=== PATIENT | female | born 1940 | race Caucasian/White ===

== ENCOUNTER → 2020-06-14 | Outpatient (CLI) | payer MEDICARE, MEDICAID ==
[~2020-06-14] MED LIST: ARICEPT 5MG PO; ASPIRIN E.C. 8181 MG PO; B-121000 MCG PO; COREG 3.123.125 MG/T PO; COREG12.5 MG PO; DEPAKOTE ER 25250 MG PO; DESYREL 50MG50 MG PO; DESYREL DIVIDO150 M1 PO; FERROUS SU325 MG/TAB PO; IBU600 MG PO; K-TAB20 PO; LASIX 20MG TABL20 MG PO; LASIX 40MG TABL40 MG PO; LIPITOR 40MG TA40 MG PO; NAMENDA 10MG TA10 MG PO; NORVASC 5MG5 MG/TAB PO; PLAVIX 75MG TAB75 MG PO; PROTONIX 40MG T40 MG PO; REFRESH TEARS 330 ML OP; SYNTHROID0.05 MG/TA PO; TYLENOL 325MG325 MG PO; ZYRTEC 10MG10 MG PO
[2020-06-14 13:30] LABS: EOS # 0.6 (0.0-0.7); EOS % 14.2 % (0-4.0); GRAN # 1.8 (1.4-6.5); GRAN % 42.3 % (42.2-75.2); LYMPH # 1.2 (1.2-3.4); LYMPH % 28.8 % (20.0-51.0); MEAN CELL VOLUME 104 fl (80.0-100.0); MEAN CORPUSCULAR HGB CONC 31 g/dl (33.0-37.0); MEAN PLATELET VOLUME 10.4 fl (7.4-10.4); MONO # 0.6 (0.1-0.6); MONO % 13.5 % (1.7-9.3); PLATELET COUNT 162 K/mm3 (130-400); RED BLOOD COUNT 3.01 M/mm3 (4.10-5.30); REDCELL DISTRIBUTION WIDTH-CV 14.6 % (11.5-14.5)
[2020-06-14 13:32] LABS: ALBUMIN 2.9 gm/dL (3.5-5.0); BILIRUBIN,TOTAL 0.4 mg/dL (0.0-1.0); CALCIUM 8.6 mg/dL (8.4-10.2); CHOLESTEROL RISK RATIO 3.8; CREATININE, serum 1.01 (0.52-1.25); POTASSIUM 4.6 mmol/L (3.4-5.0); TOTAL PROTEIN 5.9 gm/dL (6.4-8.2)
[2020-06-14 13:33] LABS: HEMATOCRIT 31.3 % (37.0-47.0); HEMOGLOBIN 9.8 g/dl (12.5-16.0); MEAN CORPUSCULAR HEMOGLOBIN 33 pg (27.0-31.0)
[2020-06-14 13:58] LABS: THYROID STIMULATING HORMONE 4.93 uIU/mL (0.465-4.680)
== END ==
LOC: ZCOL.LAB 12:51
PROVIDERS: Family Medicine
DX: I10 Essential (primary) hypertension (principal); E78.5 Hyperlipidemia, unspecified; E03.9 Hypothyroidism, unspecified

== ENCOUNTER → 2020-08-17 | Outpatient (CLI) | payer MEDICARE, MEDICAID ==
[2020-08-17 14:18] LABS: VALPROIC ACID (DEPAKENE) 32.4 ug/mL (50.0-100.0)
== END ==
LOC: ZCOL.LAB 13:32
PROVIDERS: Family Medicine
DX: I10 Essential (primary) hypertension (principal); E61.2 Magnesium deficiency; R74.01 Elevation of levels of liver transaminase levels

== ENCOUNTER → 2020-08-18 | Outpatient (CLI) | payer MEDICAID | LOC: ZCOL.LAB 11:50 | DX: E78.5 Hyperlipidemia, unspecified (principal) ==

== ENCOUNTER 2020-10-09 11:21 | Inpatient (IN) | payer MEDICARE, MEDICAID ==
[~2020-10-09] VITALS: Ht 162.6 cm; Wt 60.0 kg
[2020-10-09 12:59] LABS: COLLECTION METHOD CLEAN CATCH
[2020-10-09 13:10] LABS: MUCOUS Present /lpf; PH 5 (5-8); SQUAMOUS EPITHELIAL 0-2 /hpf; URINE APPEARANCE Clear; URINE BACTERIA Rare /hpf; URINE BILIRUBIN Negative (NEGATIVE); URINE BLOOD Negative (NEGATIVE); URINE COLOR Yellow; URINE GLUCOSE Negative (NEGATIVE); URINE KETONE Negative (NEGATIVE); URINE LEUKOCYTE ESTERASE Negative (NEGATIVE); URINE NITRATE Negative (NEGATIVE); URINE PROTEIN(semi-quant) Negative (NEGATIVE); URINE RBC 0-2 /hpf; URINE UROBILINOGEN Negative (NEGATIVE)
[2020-10-09 13:15] LABS: BASO % 0.2 % (0.0-2.0); EOS # 0.2 (0.0-0.7); EOS % 3.6 % (0-4.0); GRAN # 2.3 (1.4-6.5); GRAN % 53.9 % (42.2-75.2); HEMATOCRIT 32.2 % (37.0-47.0); HEMOGLOBIN 10.1 g/dl (12.5-16.0); LYMPH # 1.3 (1.2-3.4); LYMPH % 31.1 % (20.0-51.0); MEAN CELL VOLUME 106 fl (80.0-100.0); MEAN CORPUSCULAR HEMOGLOBIN 33 pg (27.0-31.0); MEAN CORPUSCULAR HGB CONC 31 g/dl (33.0-37.0); MEAN PLATELET VOLUME 11.3 fl (7.4-10.4); MONO # 0.5 (0.1-0.6); PLATELET COUNT 98 K/mm3 (130-400); RED BLOOD COUNT 3.05 M/mm3 (4.10-5.30); REDCELL DISTRIBUTION WIDTH-CV 12.5 % (11.5-14.5)
[2020-10-09 13:17] LABS: INR 1.2 (0.8-3.0)
[2020-10-09 13:23] LABS: ALBUMIN 3.7 gm/dL (3.5-5.0); BILIRUBIN,TOTAL 0.3 mg/dL (0.0-1.0); CALCIUM 9.5 mg/dL (8.4-10.2); CREATININE, serum 2.91 (0.52-1.25); POTASSIUM 4.8 mmol/L (3.4-5.0); TOTAL PROTEIN 7.6 gm/dL (6.4-8.2)
[2020-10-09 14:18] LABS: TROPONIN-I 0.014 ng/mL (0.000-0.035)
[2020-10-09] MEDS ORDERED: TYLENOL 325MG325 MG PO (14:33)
[2020-10-09] MEDS ORDERED: ZYRTEC 10MG10 MG PO (14:33)
[2020-10-09] MEDS ORDERED: DEPAKOTE ER 25250 MG PO (14:34)
[2020-10-09] MEDS ORDERED: COREG12.5 MG PO (14:34)
[2020-10-09] MEDS ORDERED: B-121000 MCG PO (14:34)
[2020-10-09] MEDS ORDERED: FERROUS SU325 MG/TAB PO (14:35)
[2020-10-09] MEDS ORDERED: ARICEPT 5MG PO (14:35)
[2020-10-09] MEDS ORDERED: IBU600 MG PO (14:36)
[2020-10-09] MEDS ORDERED: LASIX 40MG TABL40 MG PO (14:36)
[2020-10-09] MEDS ORDERED: PROTONIX 40MG T40 MG PO (14:37)
[2020-10-09] MEDS ORDERED: NAMENDA 10MG TA10 MG PO (14:37)
[2020-10-09] MEDS ORDERED: K-TAB20 PO (14:38)
[2020-10-09] MEDS ORDERED: REFRESH TEARS 330 ML OP (14:38)
[2020-10-09] MEDS ORDERED: DESYREL DIVIDO150 M1 PO (14:39)
[2020-10-09] MEDS ORDERED: SYNTHROID0.05 MG/TA PO (14:39)
[2020-10-09 17:06] LABS: TRICYCLIC ANTIDEPRESS URINE NEGATIVE
[2020-10-09 17:11] VITALS: BP 146/107; PULSE 60; TEMP 98.4
--- NOTE | 2020-10-09 18:41 | NUR ---
Patient arrived from ED, physical exam completed. Dick sent over report. Upon arrival the patient was very shakey from being cold, she was given a warm blanket and felt much better. The patient was unable to answer questions correctly d/t AMS. This RN recieved a call from telemetry stating that the patient was off tele. This RN went to check on the patient and she had pulled of her telemetry, oxygen, and ripped out her IV. The ED RN reported that the patient was a "hard stick", so this RN asked Jessica Vargas RN, to start the IV. She did successfully place a 22G to the left forearm. The patient then pulled her telemetry off again approx. 30mins later. This RN decided to place mits on the patient to keep her from potentially pulling her IV out again.
[2020-10-09 20:20] VITALS: BP 157/55; PULSE 61; TEMP 97.6
[2020-10-09 23:38] VITALS: BP 187/65; PULSE 67; TEMP 97.9
--- NOTE | 2020-10-10 00:06 | NUR ---
Tri is calmy sleeping in bed. She denies pain or SOB. Her BP was 187/65 and RN did it again in right arm it was 201/72. Apresoline 10mg ordered and given.Continue to monitor.
--- NOTE | 2020-10-10 02:44 | NUR ---
Tri is groaning and moaning in pain. She complains of right foot pain. Tylenol didn't work. Flaca notified and ordered Morphine 2mgIVP PRN and given. Will continue to follow.
[2020-10-10 03:53] VITALS: BP 160/48; PULSE 73; TEMP 98.5
[2020-10-10 08:03] VITALS: BP 134/39; PULSE 57; TEMP 98.9
[2020-10-10 08:18] LABS: MEAN CELL VOLUME 103 fl (80.0-100.0); MEAN CORPUSCULAR HGB CONC 33 g/dl (33.0-37.0); MEAN PLATELET VOLUME 11.2 fl (7.4-10.4); PLATELET COUNT 81 K/mm3 (130-400); RED BLOOD COUNT 2.84 M/mm3 (4.10-5.30); REDCELL DISTRIBUTION WIDTH-CV 12.3 % (11.5-14.5)
[2020-10-10 08:22] LABS: CALCIUM 8.7 mg/dL (8.4-10.2); CREATININE, serum 1.75 (0.52-1.25); POTASSIUM 3.7 mmol/L (3.4-5.0)
[2020-10-10 08:23] LABS: HEMATOCRIT 29.2 % (37.0-47.0); HEMOGLOBIN 9.7 g/dl (12.5-16.0); MEAN CORPUSCULAR HEMOGLOBIN 34 pg (27.0-31.0)
--- NOTE | 2020-10-10 08:43 | NUR ---
Shift assessment complete. Pt lying in bed. Alert but no oriented. Unable to state her name and , stating "nobody ever told me what those were." NS running to left forearm IV at 125 ml/hr. NC on at 4 lpm O2. Splint in place to left foot which has mild swelling. Pt denies pain at this time. Continuing to monitor.
[2020-10-10 08:53] LABS: THYROID STIMULATING HORMONE 2.26 uIU/mL (0.465-4.680)
[2020-10-10 08:58] LABS: IRON,SERUM 76 ug/dL (35-150)
[2020-10-10 09:08] LABS: TOTAL IRON BINDING CAPACITY 218 ug/dL (265-497)
--- NOTE | 2020-10-10 09:30 | NUR ---
Report received from PAULA Murrieta pt resting in bed, will resume care of pt at this time.
[2020-10-10 10:28] LABS: BAND 2 % (0-10); BASOPHIL 1 % (0-2); EOSINOPHIL 5 % (0-4); LYMPHOCYTE 37 % (20.0-51.0); METAMYELOCYTE 1 % (0-0); MYELOCYTE 1 % (0-0); NEUTROPHILS 44 % (42.0-75.2); PLATELET ESTIMATE DECREASED (NORMAL)
[2020-10-10 12:15] VITALS: BP 136/52; PULSE 68; TEMP 98.6
[2020-10-10 15:37] LABS: FOLATE (FOLIC ACID) 3.7 ng/mL (2.0-20.0)
[2020-10-10 17:24] VITALS: BP 141/47; PULSE 55; TEMP 97.5
--- NOTE | 2020-10-10 18:21 | NUR ---
Pt pulled out own IV earlier, took multiple attempts to replace with 24G to RH. REsting in bed between disturbances, using bedpan to void, no BM. Resting now, will give bedside shift report to nightshift nurse who will resume care.
[2020-10-10 19:20] VITALS: BP 125/43; PULSE 61; TEMP 97.9
[2020-10-11] VITALS (7 sets, daily range): BP systolic 134–189; BP diastolic 40–73; PULSE 60–78; TEMP 97.2–98.7
--- NOTE | 2020-10-11 03:15 | NUR ---
PATIENT ALERT AND ORIENTED TO SELF. LEFT ANKLE FRACTURE. LARGE BLISTER TO TOP OF LEFT FOOT INTACT. INCONTINENT OF URINE, TURNED AND REPOSITION WITH TWO ASSIST. PLAN TO SEE ORTHO TODAY, VSS. CALL WITHIN REACH, BED ALARM IN PLACE.
[2020-10-11 06:35] LABS: BASO % 0.6 % (0.0-2.0); EOS # 0.3 (0.0-0.7); EOS % 7.9 % (0-4.0); GRAN # 1.5 (1.4-6.5); GRAN % 44.6 % (42.2-75.2); HEMOGLOBIN 10.1 g/dl (12.5-16.0); LYMPH # 1.1 (1.2-3.4); LYMPH % 34.5 % (20.0-51.0); MEAN CELL VOLUME 103 fl (80.0-100.0); MEAN CORPUSCULAR HEMOGLOBIN 33 pg (27.0-31.0); MEAN CORPUSCULAR HGB CONC 32 g/dl (33.0-37.0); MEAN PLATELET VOLUME 11.3 fl (7.4-10.4); MONO # 0.4 (0.1-0.6); MONO % 11.8 % (1.7-9.3); PLATELET COUNT 101 K/mm3 (130-400); RED BLOOD COUNT 3.04 M/mm3 (4.10-5.30); REDCELL DISTRIBUTION WIDTH-CV 12.3 % (11.5-14.5)
[2020-10-11 06:38] LABS: HEMATOCRIT 31.3 % (37.0-47.0)
[2020-10-11 06:41] LABS: CREATININE, serum 1.28 (0.52-1.25); POTASSIUM 3.7 mmol/L (3.4-5.0)
--- NOTE | 2020-10-11 09:01 | NUR ---
Pt awake upon entry to room, no C/O pain at this time. Shift assessments complete, left Pt in bed, call light in reach.
--- NOTE | 2020-10-11 10:11 | NUR ---
Initial visit; Patient understood that Destination Imagination Coordinator was talking about Ramon as she sang "Ramon Loves Me" Rti smiled and knows that Ramon loves her. Destination Imagination Coordinator will follow up.
--- NOTE | 2020-10-11 14:41 | NUR ---
The patient has a history of dementia. SW contacted Dick to confirm level of care and requested the patient's DPOA-HC. The patient resides in assisted living. Her PCP is Dr. Keisha Ramon. SW received the patient's DPOA-HC and placed the copy in the patient's chart. The patient's DPOA-HC is her daughter, Kasia (ph#[phone]). PT notified MICHELLE that she is recommending SNF for the patient. SW contacted the patient's daughter, Kasia, to discuss discharge plan. Kasia is agreeable to SNF and was open for SW to send referrals to the local facilities. MICHELLE contacted and faxed a referral to [facility], [facility], and [facility]. Awaiting screens. *Discharge plan: SNF*
--- NOTE | 2020-10-11 20:00 | NUR ---
PATIENT IS CONFUSED AND DOESN'T TALK MUCH WHEN NURSING STAFF ATTEMPTS TO ENGAGE HER. NOTED ELEVATED B/P OF 164/65 WITH ALL OTHER VSS ON TELE. HS MEDS GIVEN. 02 AT 2L PER NC WITH SATS IN MID 90'S. HEAD TO TOE ASSESSMENT COMPLETE. CAM BOOT TO LLE. SCD'S CURRENTLY OFF. POSITIVE PEDAL PULSE TO RLE. RIGHT HAND IV TO INT. NO OTHER NEEDS AT THIS TIME. PATIENT SLEEPING. CALL LIGHT IN REACH. BED ALARM ON.
[2020-10-12 00:37] VITALS: BP 197/56; PULSE 68; TEMP 97.9
[2020-10-12 01:25] VITALS: BP 172/59
--- NOTE | 2020-10-12 01:30 | NUR ---
NOTED HYPERTENSION GREATER THAN 170 SYSTOLIC. GAVE PRN HYDRALAZINE PER ORDERS.
[2020-10-12 04:37] VITALS: BP 185/52; PULSE 70; TEMP 98.1
[2020-10-12 04:45] VITALS: BP 173/71
[2020-10-12 07:18] LABS: BASO % 0.2 % (0.0-2.0); EOS # 0.2 (0.0-0.7); EOS % 3.5 % (0-4.0); GRAN # 2.8 (1.4-6.5); GRAN % 61.3 % (42.2-75.2); HEMOGLOBIN 10.4 g/dl (12.5-16.0); LYMPH % 22.3 % (20.0-51.0); MEAN CELL VOLUME 102 fl (80.0-100.0); MEAN CORPUSCULAR HEMOGLOBIN 34 pg (27.0-31.0); MEAN CORPUSCULAR HGB CONC 33 g/dl (33.0-37.0); MEAN PLATELET VOLUME 11.3 fl (7.4-10.4); MONO # 0.6 (0.1-0.6); PLATELET COUNT 105 K/mm3 (130-400); RED BLOOD COUNT 3.08 M/mm3 (4.10-5.30); REDCELL DISTRIBUTION WIDTH-CV 12.5 % (11.5-14.5)
[2020-10-12 07:25] LABS: CALCIUM 9.4 mg/dL (8.4-10.2); CREATININE, serum 0.87 (0.52-1.25); POTASSIUM 3.8 mmol/L (3.4-5.0)
[2020-10-12 07:31] LABS: HEMATOCRIT 31.5 % (37.0-47.0)
[2020-10-12 08:04] VITALS: BP 193/66; PULSE 75; TEMP 97.8
--- NOTE | 2020-10-12 09:01 | NUR ---
Pt sleeping upon entry to room, easily awakened. Pt does not appear to be in pain at this time. PRN apresoline given for systolic >170. Shift assssments complete, left Pt call light in reach, bed in lowest position.
[2020-10-12] MEDS ORDERED: NORVASC 5MG5 MG/TAB PO (09:12)
[2020-10-12] MEDS ORDERED: LASIX 20MG TABL20 MG PO (09:13)
--- NOTE | 2020-10-12 10:46 | NUR ---
Anuel, at [facility], reports that they are not in-network with the patient's insurance and would have to submit for a contract. Amador, at [facility], reports that they are able to accept the patient for a skilled stay today. MICHELLE contacted and updated the patient's daughter, Kasia. Kasia was agreeable to the plan. SW read the IM form outloud to Kasia. Kasia verbalized understanding and gave SW approval to sign the form on her behalf. The patient is to discharge today, 10/12, to [facility] for a skilled stay. Transportation was scheduled at 1300, via [facility]. SW informed the patient's RN and her daughter daughter, Kasia, of the time. They were both agreeable to the time. No additional needs at this time.
[2020-10-12 11:31] VITALS: BP 117/61; PULSE 62; TEMP 99
--- NOTE | 2020-10-12 14:03 | NUR ---
Pt transferred to [place], dressed Pt in own clothes, changed brief. Assisted transporter with transfer to , escorted Pt to entrance. Pt left with transporter from [facility].
== END 2020-10-12 14:06 | DRG 682 ==
LOC: COL.ER 11:21 → MEDICAL 14:10 → COL.ER 14:10 → MEDICAL 14:10
PROVIDERS: Nurse Practitioner Primary Care; Physician Assistant; ADMIT Internal Medicine
DX: N17.9 Acute kidney failure, unspecified (principal); G93.41 Metabolic encephalopathy; D53.9 Nutritional anemia, unspecified; F31.9 Bipolar disorder, unspecified; K21.9 Gastro-esophageal reflux disease without esophagitis; D69.6 Thrombocytopenia, unspecified; I10 Essential (primary) hypertension; J44.9 Chronic obstructive pulmonary disease, unspecified; E78.5 Hyperlipidemia, unspecified; S92.312A Displaced fracture of first metatarsal bone, left foot, initial encounter for closed fracture; G47.00 Insomnia, unspecified; E07.9 Disorder of thyroid, unspecified; G47.419 Narcolepsy without cataplexy; E86.0 Dehydration; M54.9 Dorsalgia, unspecified; M19.90 Unspecified osteoarthritis, unspecified site; G89.29 Other chronic pain; F03.90 Unspecified dementia, unspecified severity, without behavioral disturbance, psychotic disturbance, mood disturbance, and anxiety; Z99.81 Dependence on supplemental oxygen; Z79.890 Hormone replacement therapy; Z87.891 Personal history of nicotine dependence; W19.XXXA Unspecified fall, initial encounter
CPT/HCPCS: 99222-AI; 99232-AI; 99239; J0360; J1644; J2270; J7030

== ENCOUNTER 2020-10-12 17:42 | Inpatient (IN) | payer MEDICARE, MEDICAID ==
[~2020-10-12] VITALS: Ht 162.6 cm; Wt 40.9 kg
[~2020-10-12 17:42] MED LIST changes: -ASPIRIN E.C. 8181 MG PO; -COREG 3.123.125 MG/T PO; -DESYREL 50MG50 MG PO; -LIPITOR 40MG TA40 MG PO; -PLAVIX 75MG TAB75 MG PO
[2020-10-12 19:19] LABS: COLLECTION METHOD CATHETER
[2020-10-12 19:27] LABS: MUCOUS Present /lpf; PH 5 (5-8); SQUAMOUS EPITHELIAL None Seen /hpf; URINE APPEARANCE Clear; URINE BACTERIA None Seen /hpf; URINE BILIRUBIN Negative (NEGATIVE); URINE BLOOD Negative (NEGATIVE); URINE COLOR Yellow; URINE GLUCOSE Negative (NEGATIVE); URINE KETONE Trace (NEGATIVE); URINE LEUKOCYTE ESTERASE Negative (NEGATIVE); URINE NITRATE Negative (NEGATIVE); URINE PROTEIN(semi-quant) Negative (NEGATIVE); URINE RBC 0-2 /hpf; URINE UROBILINOGEN Negative (NEGATIVE)
[2020-10-12 20:32] LABS: BASO % 0.2 % (0.0-2.0); EOS # 0.1 (0.0-0.7); EOS % 1.3 % (0-4.0); GRAN # 2.9 (1.4-6.5); GRAN % 62.8 % (42.2-75.2); HEMOGLOBIN 10.1 g/dl (12.5-16.0); LYMPH # 1.1 (1.2-3.4); LYMPH % 22.8 % (20.0-51.0); MEAN CELL VOLUME 102 fl (80.0-100.0); MEAN CORPUSCULAR HEMOGLOBIN 33 pg (27.0-31.0); MEAN CORPUSCULAR HGB CONC 33 g/dl (33.0-37.0); MEAN PLATELET VOLUME 11.1 fl (7.4-10.4); MONO # 0.6 (0.1-0.6); MONO % 12.3 % (1.7-9.3); PLATELET COUNT 115 K/mm3 (130-400); RED BLOOD COUNT 3.04 M/mm3 (4.10-5.30); REDCELL DISTRIBUTION WIDTH-CV 12.4 % (11.5-14.5)
[2020-10-12 20:46] LABS: ALBUMIN 3.2 gm/dL (3.5-5.0); BILIRUBIN,TOTAL 0.6 mg/dL (0.0-1.0); C-REACTIVE PROTEIN 2.3 mg/dL (0.0-0.9); CALCIUM 9.2 mg/dL (8.4-10.2); CREATININE, serum 0.91 (0.52-1.25); POTASSIUM 3.4 mmol/L (3.4-5.0); TOTAL PROTEIN 6.7 gm/dL (6.4-8.2)
[2020-10-12 21:07] LABS: TROPONIN-I 0.023 ng/mL (0.000-0.035)
[2020-10-13 01:20] LABS: TRICYCLIC ANTIDEPRESS URINE NEGATIVE
--- NOTE | 2020-10-13 20:41 | NUR ---
patient came up to the floor close to shift change. Her daughter is at the bedside that provides information. Pt is lethargic but arousable for painful stimuli. I tried to neuro check she open her eyes and cant follow in full commands. RN and the daughter agreed that the night dose of pills if she still lethargic can be hold for now until she is fully awake.
--- NOTE | 2020-10-13 23:24 | NUR ---
Patient refused to get her VS to PAULA Mckeon tried and she refused too. Neuro check every 4 hours is not done as well. Patient is lethargic and uncooperative.
[2020-10-14] VITALS (8 sets, daily range): BP systolic 100–148; BP diastolic 29–63; PULSE 60–84; TEMP 97.6–98.6
--- NOTE | 2020-10-14 03:58 | NUR ---
Tech reported her that she was able to get VS for her. BP noted it was low 115/34. RN repeat it and it was 120/40. Julianna notified the result and notified about the night dose of her pills that was refused by the family. No ordered given.
--- NOTE | 2020-10-14 04:16 | NUR ---
Patient is more awake this morning. She woke up and asked for pain meds. Tylenol PRN given and morning pills given as well. Neuro check is done.She is alert and awake, oriented to self and place but not to time. She asked for pepsi and swallow her pills good. Bed alarm is on and call light is within reach. Continue to monitor.
[2020-10-14 07:48] LABS: BASO % 0.3 % (0.0-2.0); EOS # 0.3 (0.0-0.7); EOS % 6.9 % (0-4.0); GRAN # 1.7 (1.4-6.5); GRAN % 43.2 % (42.2-75.2); LYMPH # 1.4 (1.2-3.4); LYMPH % 35.5 % (20.0-51.0); MEAN CELL VOLUME 103 fl (80.0-100.0); MEAN CORPUSCULAR HGB CONC 33 g/dl (33.0-37.0); MEAN PLATELET VOLUME 10.7 fl (7.4-10.4); MONO # 0.5 (0.1-0.6); MONO % 13.6 % (1.7-9.3); PLATELET COUNT 128 K/mm3 (130-400); RED BLOOD COUNT 2.55 M/mm3 (4.10-5.30); REDCELL DISTRIBUTION WIDTH-CV 12.3 % (11.5-14.5)
[2020-10-14 07:49] LABS: HEMATOCRIT 26.3 % (37.0-47.0); HEMOGLOBIN 8.6 g/dl (12.5-16.0); MEAN CORPUSCULAR HEMOGLOBIN 34 pg (27.0-31.0)
[2020-10-14 08:04] LABS: CALCIUM 8.7 mg/dL (8.4-10.2); CREATININE, serum 1.05 (0.52-1.25)
[2020-10-14] MEDS ORDERED: COREG 3.123.125 MG/T PO (09:56)
[2020-10-14] MEDS ORDERED: DESYREL 50MG50 MG PO (09:56)
--- NOTE | 2020-10-14 10:08 | NUR ---
The patient discharged from the hospital on 10/12 to [facility] for SNF. [facility] then transferred the patient back to the ED a couple hours later, due to being drowsy and not easily awakened. The patient is to have an echocardiogram today and then may be able to d/c later today. MICHELLE contacted the patient's daughter/DPOA-HC, Kasia (ph#[phone]), to discuss discharge plan. Kasia would like for the patient to go back to [facility] for some rehab upon discharge. The patient's PCP is Dr. Keisha Ramon and her DPOA-HC is in EMR. MICHELLE contacted and faxed updates to Amador at [facility]. MICHLELE to continue to follow. *Discharge plan: [facility] SNF*
--- NOTE | 2020-10-14 11:27 | NUR ---
Pt blood pressure 100/40 this AM. Re-assessed blood pressure manually, 102/40. Provider notified, medication held.
--- NOTE | 2020-10-14 15:46 | NUR ---
Pt complains of pain 7-8/10 in leg with boot. Assessed cap refill <3s and skin above boot warm and dry. Pain managed with PRN tylenol per orders.
--- NOTE | 2020-10-14 16:26 | NUR ---
Pt complained of pain in leg with boot unrelieved by tylenol. Provider notified for stronger pain medication.
--- NOTE | 2020-10-14 16:44 | NUR ---
Pt alert and oriented this shift. Mild confusion on location during morning assessment but easily reoriented. Pt had pain in boot this afternoon, managed with prn pain medication, unrelieved. Provider notified to increase pain medication. Pt had generalized bruising noted over left arm. Pt's left foot in boot from previous fracture. Able to move toes, skin warm above the boot, no redness or swelling noted at this time. Pt received potassium replacement per orders this AM. Neurology consulted this afternoon. Pt's daughter visited and was updated on plan of care.Neuro checks performed q4hrs per protocol. No abnormal signs/symptoms noted at this time. Pt free from injury this shift.
--- NOTE | 2020-10-14 16:52 | NUR ---
Krystal, RN at [facility], contacted MICHELLE. Krystal reports that they think the patient needs a stroke workup and cannot take her back until PT/OT/ST have worked with her. MICHELLE then received a phone call from the patient's daughter, Kasia. Kasia reports that she has been talking to [facility] and would like to the patient transferred to [facility]. MICHELLE notified the hospitalist. The patient's daughter then arrived to the hospital. The hospitalist met with Kasia and provided her with an update on the patient and how their is no indication to transfer to [facility]. The hospitalist consulted neurology and he would likely be ready to d/c the patient tomorrow. Kasia was agreeable to the plan. MICHELLE updated Krystal at [facility] on the above. Krystal reports that they think the patient needs acute rehab and do not know if they can accomodate the patient's needs. She states that she has been talking to [facility] in [place] and that they have a bed. She states that she has talked to the patient's daughter about this and that the patient's daughter is interested in [place]. MICHELLE then met with the patient's daughter, Kasia, to review the above. Kasia confirms that she would be interested in [facility]. MICHELLE discussed having a second preference. Kasia was open for MICHELLE to send referrals to the local facilities and states that she will talk to [facility] and get their opinion. MICHELLE consulted IPR Director, Nisa. MICHELLE contacted and faxed a referral to [facility] and [facility]. Awaiting screens. MICHELLE attempted to contact [facility] in [place] to obtain fax number. MICHELLE left them a voicemail.
--- NOTE | 2020-10-14 19:07 | NUR ---
100% of meal eaten
--- NOTE | 2020-10-14 20:00 | NUR ---
PATIENT ORIENTED X2, DISPLAYING OCCATIONAL CONFUSIONG/FORGETFULNESS. PATIENT HAS HX OF DEMENTIA AND LIVES AT [facility]. VSS ON TELE. NEURO CHECKS WNL. HEAD TO TOE ASSESSMENT COMPLETE. SKIN INTEGRITY ISSUES NOTED, SEE SHIFT ASSESSMENT. PT/OT/ST CONSULTED. HS MEDS GIVEN WITHOUT DIFFICULTY. NO C/O N/V. RIGHT AC IV TO INT. LLE CAM BOOT INPLACE. SCD'S CURRENTLY OFF PER PATIENT. NO OTHER NEEDS AT THIS TIME. CALL LIGHT IN REACH. BED ALARM ON.
[2020-10-15 03:42] VITALS: BP 124/53; PULSE 74; TEMP 98.6
[2020-10-15 06:41] LABS: BASO % 0.4 % (0.0-2.0); EOS # 0.5 (0.0-0.7); EOS % 9.3 % (0-4.0); GRAN # 2.4 (1.4-6.5); GRAN % 45.3 % (42.2-75.2); LYMPH # 1.6 (1.2-3.4); LYMPH % 30.1 % (20.0-51.0); MEAN CELL VOLUME 103 fl (80.0-100.0); MEAN CORPUSCULAR HGB CONC 32 g/dl (33.0-37.0); MEAN PLATELET VOLUME 10.7 fl (7.4-10.4); MONO # 0.8 (0.1-0.6); MONO % 14.7 % (1.7-9.3); PLATELET COUNT 161 K/mm3 (130-400); RED BLOOD COUNT 2.84 M/mm3 (4.10-5.30); REDCELL DISTRIBUTION WIDTH-CV 12.3 % (11.5-14.5)
[2020-10-15 06:42] LABS: HEMATOCRIT 29.3 % (37.0-47.0); HEMOGLOBIN 9.5 g/dl (12.5-16.0); MEAN CORPUSCULAR HEMOGLOBIN 33 pg (27.0-31.0)
[2020-10-15 06:48] LABS: CALCIUM 8.8 mg/dL (8.4-10.2); CREATININE, serum 1.19 (0.52-1.25); POTASSIUM 3.3 mmol/L (3.4-5.0)
[2020-10-15 07:22] VITALS: BP 146/33; PULSE 78; TEMP 98.9
[2020-10-15] MEDS ORDERED: ASPIRIN E.C. 8181 MG PO (09:17)
[2020-10-15] MEDS ORDERED: LIPITOR 40MG TA40 MG PO (09:17)
[2020-10-15] MEDS ORDERED: PLAVIX 75MG TAB75 MG PO (09:17)
[2020-10-15 09:41] VITALS: BP 120/42
--- NOTE | 2020-10-15 09:57 | NUR ---
Pt alert, oriented. Drowsy, but easily aroused. Pt expressed pain, managed with prn pain medication. Pt had low DBP, rechecked manually. Pt has generalized bruising over left arm, one abraision on left forearm that has scabbed over. Pt expressed some pain with initial flush, but no infiltration or phlebitis noted and pain quickly resolved. Will continue to monitor. IV site clean, dry, intact. Call light and phone within reach, bed locked in lowest position.
[2020-10-15 11:23] VITALS: BP 142/36; PULSE 75; TEMP 99.3
[2020-10-15 12:03] VITALS: BP 146/48
--- NOTE | 2020-10-15 16:21 | NUR ---
MICHELLE obtained [facility]'s fax number. MICHELLE contacted and faxed a referral to Radha at [facility] Radha reports that they have declined the patient and would recommend SNF. Nisa, [facility] Director, reports that that they have declined the patient, due to the patient declining to work with therapy and no bed available. Anuel, at [facility], reports the patient's insurance is [id number] with them and they would have to get a contract with her insurance. He states that if they do get a contract with the patient's insurance, then her insurance would disenroll the patient and the patient would have to reapply for her Medicare plan in October. MICHELLE received a phone call from Trina, security officer supervisor, with the patient's insurance. Trina requested the patient's records to be able to approve SNF. MICHELLE faxed the patient's records to Trina. MICHELLE contacted and faxed updates to Krystal at [facility]. Krystal reports that they would need to see PT/OT/ST mk before they would consider taking the patient. MICHELLE faxed the patient's therapy evals and echocardiogram to Krystal. Krystal reports that they are able to accept the patient back today for SNF and are sending a meals on wheels driver now. MICHELLE contacted and updated the patient's daughter, Kasia, on the above. Kasia is agreeable with the patient going to [facility] today. The patient is to discharge today, 10/15, back to [facility] for a skilled stay. Transportation provided by [facility]. No additional needs at this time.
--- NOTE | 2020-10-15 17:46 | NUR ---
Attempt to call for report. Called once and got transferred with no answer. Attempted to call rehab facility twice with no answer, left number to call back.
== END 2020-10-15 16:44 | DRG 64 ==
LOC: COL.ER 17:42 → MEDICAL 10-13 17:23
PROVIDERS: Nurse Practitioner; Student in an Organized Health Care Education/Training Program
DX: I63.9 Cerebral infarction, unspecified (principal); G93.41 Metabolic encephalopathy; F31.9 Bipolar disorder, unspecified; I10 Essential (primary) hypertension; S92.312A Displaced fracture of first metatarsal bone, left foot, initial encounter for closed fracture; K21.9 Gastro-esophageal reflux disease without esophagitis; J44.9 Chronic obstructive pulmonary disease, unspecified; I07.1 Rheumatic tricuspid insufficiency; E07.9 Disorder of thyroid, unspecified; F03.90 Unspecified dementia, unspecified severity, without behavioral disturbance, psychotic disturbance, mood disturbance, and anxiety; D69.6 Thrombocytopenia, unspecified; G47.9 Sleep disorder, unspecified; D53.9 Nutritional anemia, unspecified; E78.5 Hyperlipidemia, unspecified; F17.210 Nicotine dependence, cigarettes, uncomplicated; W19.XXXA Unspecified fall, initial encounter; Z86.73 Personal history of transient ischemic attack (TIA), and cerebral infarction without residual deficits; Z90.710 Acquired absence of both cervix and uterus; Z79.82 Long term (current) use of aspirin
CPT/HCPCS: 99223-AI; 99239; A9585; G0378; J2310

== ENCOUNTER 2020-10-19 10:42 | Emergency (ER) | payer MEDICARE, MEDICAID ==
[~2020-10-19] VITALS: Ht 162.6 cm; Wt 68.2 kg
[~2020-10-19 10:42] MED LIST changes: +ASPIRIN E.C. 8181 MG PO; +COREG 3.123.125 MG/T PO; +DESYREL 50MG50 MG PO; +LIPITOR 40MG TA40 MG PO; +PLAVIX 75MG TAB75 MG PO
[2020-10-19 10:44] VITALS: TEMP 98.6
[2020-10-19 11:08] LABS: ARTERIAL BLD GAS O2 SATURATION 92.6 % (92-100); ARTERIAL BLD GAS TCO2 CT 35.1; ARTERIAL BLOOD GAS BASE EXCESS 8.1 (-2-2); ARTERIAL BLOOD GAS HCO3 33.5 meq/L (22-26); ARTERIAL BLOOD GAS PCO2 51.2 mmHg (35-45); ARTERIAL BLOOD GAS PO2 65.5 mmHg (80-100); ARTERIAL BLOOD GAS pH 7.43 (7.35-7.45)
[2020-10-19 11:15] LABS: HEMATOCRIT 31.7 % (37.0-47.0); HEMOGLOBIN 10.2 g/dl (12.5-16.0); MEAN CELL VOLUME 104 fl (80.0-100.0); MEAN CORPUSCULAR HEMOGLOBIN 33 pg (27.0-31.0); MEAN CORPUSCULAR HGB CONC 32 g/dl (33.0-37.0); MEAN PLATELET VOLUME 9.6 fl (7.4-10.4); PLATELET COUNT 195 K/mm3 (130-400); RED BLOOD COUNT 3.05 M/mm3 (4.10-5.30); REDCELL DISTRIBUTION WIDTH-CV 12.7 % (11.5-14.5)
[2020-10-19 11:27] LABS: ALBUMIN 3.5 gm/dL (3.5-5.0); BILIRUBIN,TOTAL 0.6 mg/dL (0.0-1.0); C-REACTIVE PROTEIN 7.3 mg/dL (0.0-0.9); CALCIUM 9.3 mg/dL (8.4-10.2); CREATININE, serum 1.16 (0.52-1.25); POTASSIUM 4.4 mmol/L (3.4-5.0); TOTAL PROTEIN 7.5 gm/dL (6.4-8.2)
[2020-10-19 11:47] LABS: BAND 1 % (0-10); EOSINOPHIL 1 % (0-4); LYMPHOCYTE 13 % (20.0-51.0); NEUTROPHILS 70 % (42.0-75.2)
[2020-10-19 11:48] LABS: HYPOCHROMIA 1+; PLATELET ESTIMATE NORMAL (NORMAL)
[2020-10-19 13:20] VITALS: BP 148/83; PULSE 81
== END 2020-10-19 13:23 | disposition home or self-care (01) ==
LOC: COL.ER 10:42
PROVIDERS: Emergency Medicine
DX: G45.9 Transient cerebral ischemic attack, unspecified (principal); G30.9 Alzheimer's disease, unspecified; F02.80 Dementia in other diseases classified elsewhere, unspecified severity, without behavioral disturbance, psychotic disturbance, mood disturbance, and anxiety; J44.9 Chronic obstructive pulmonary disease, unspecified; K21.9 Gastro-esophageal reflux disease without esophagitis; Z86.73 Personal history of transient ischemic attack (TIA), and cerebral infarction without residual deficits; Z79.02 Long term (current) use of antithrombotics/antiplatelets; Z79.82 Long term (current) use of aspirin
CPT/HCPCS: J7040